=== PATIENT | female | born 1950 | race Caucasian/White ===

== ENCOUNTER 2017-07-08 13:06 | Emergency (ER) | payer OTHER ==
[~2017-07-08] VITALS: Ht 160 cm; Wt 68.0 kg
[2017-07-08] MEDS ORDERED: AVAPRO75 MG (13:25)
== END 2017-07-08 21:31 | disposition home or self-care (01) ==
LOC: ER 13:06
DX: S01.121A Laceration with foreign body of right eyelid and periocular area, initial encounter (principal); S42.251A Displaced fracture of greater tuberosity of right humerus, initial encounter for closed fracture; S80.01XA Contusion of right knee, initial encounter; W01.118A Fall on same level from slipping, tripping and stumbling with subsequent striking against other sharp object, initial encounter; Y93.89 Activity, other specified; Y92.098 Other place in other non-institutional residence as the place of occurrence of the external cause; Y99.8 Other external cause status